=== PATIENT | male | born 1995 | race Caucasian/White ===

== ENCOUNTER 2016-11-19 22:47 | Emergency (ER) | payer BC ==
[2016-11-19 22:55] VITALS: TEMP 98.1
[2016-11-19] MEDS ORDERED: IBUPROFEN 200 MG TAB PO ONE (22:56)
--- NOTE | 2016-11-19 23:54 | EDPHY ---
H & P Stated Complaint: cold sx x 1 week low back pain today Time Seen by Provider: 11/19/16 23:42 HPI/ROS: CHIEF COMPLAINT: Low back pain HISTORY OF PRESENT ILLNESS: 21-year-old immunocompetent male complaining of URI symptoms for the past 1 week including sore throat, rhinorrhea, cough. In the past few days he has noticed bilateral paraspinous lumbar pain with intermittent radicular symptoms/pain in his left lower extremity. No incontinence or retention. No fever or chills. No saddle anesthesia. No foot drop. No lower extremity weakness. No nuchal rigidity. No chest pain. No abdominal pain. No urinary complaints. No flank pain. He took a single Motrin 200 mg this morning with no change in symptoms. PRIMARY CARE PROVIDER: [facility] REVIEW OF SYSTEMS: A ten point review of systems was performed and is negative with the exception of the items mentioned in the HPI PAST MEDICAL & SURGICAL HISTORY: No pertinent medical or surgical history SOCIAL HISTORY: no IV drug use history PHYSICAL EXAM (Prior to examination, patient consented to physical exam, hands were washed and my usual and customary physical exam procedures followed) 1) GENERAL: Well-developed, well-nourished, alert and oriented. Appears to be in no acute distress. 2) HEAD: Normocephalic, atraumatic 3) HEENT: Pupils equal, round, reactive to light bilaterally. Sclera anicteric. Nasopharynx, oropharynx, clear, no lesions.No tonsillar enlargement or tonsillar exudate 4) NECK: Full range of motion, no meningeal signs. Positive bilateral submandibular adenopathy nontender. 5) LUNGS: Clear auscultation bilaterally, no wheezes, no rhonchi, no retractions. 6) HEART: Regular rate and rhythm, no murmur, no heave, no gallop. 7) ABDOMEN: No guarding, no rebound, no focal tenderness, negative McBurney's, negative Dumont's, negative Rovsing's, negative peritoneal sign, 8) MUSCULOSKELETAL: Moving all extremities, no focal areas of tenderness, no obvious trauma. No peripheral edema or discoloration. 9) BACK: tender to palpation lumbarparaspinous muscle. No CVA tenderness, no midline vertebral tenderness, no fluctuance, no step-off, no obvious trauma, no visual or palpable abnormality. Patella, Achilles reflexes intact to bilateral strength 5/5. No foot drop 10) SKIN: No rash, no petechiae. 11) NEURO: Awake, alert, and oriented to person, place and time. Answers questions appropriately. There were no obvious focal neurologic abnormalities. No cerebellar dysfunction. Normal steady gait. Upper and lower extremities bilaterally with strength 5 / 5, reflexes 2+.. DIFFERENTIAL DIAGNOSIS: In no particular order, including but not limited to, fracture, sprain/strain, cauda equina, spinal infectious etiology. MEDICAL DECISION MAKING This patient appears well overall. Regarding his URI symptoms I could not fully rule out influenza however his symptoms have been occurring for week already and I do not think that there is further utility in testing for influenza as he is outside the window for treatment for influenza.. More than likely secondary to viral etiology. Doubt pneumonia. Doubt bacterial etiology for his URI symptoms. I do not think that chest x-ray or antibiotics currently indicated. Regarding his low back pain, lower index of suspicion for cauda equina, epidural abscess, epidural hematoma, lumbar myositis, diskitis, as the patient is neurologically intact in the lower extremities, has patella and Achilles reflexes intact and equal bilaterally, has no neurologic deficits, no incontinence, no retention, no midline pain, no fluctuance, afebrile, no flulike symptoms. Pain may be secondary to muscular strain, may be secondary to discogenic etiology. At this point I do not identify definitive indication for emergent MRI, however patient may necessitate this on an outpatient basis. Patient given acute back pain precautions. Patient verbalizes understanding of discharge instructions. I believe them be competent decision-makers. All questions and concerns have been addressed by me. Ample opportunity for questions have been provided . The patient understands that this diagnosis is provisional and can never be 100% accurate. Usual and customary warnings were given concerning the clinical impression and all the patient's questions were answered. The patient was instructed to return to the emergency department should her symptoms worsen or return, or develop any new symptoms, otherwise to followup as directed in discharge instructions. - Personal History Current Tetanus/Diphtheria Vaccine: Yes Current Tetanus Diphtheria and Acellular Pertussis (TDAP): Yes - Medical/Surgical History Hx Asthma: No Hx Chronic Respiratory Disease: No Hx Diabetes: No Hx Cardiac Disease: No Hx Renal Disease: No Hx Cirrhosis: No Hx Alcoholism: No Hx HIV/AIDS: No Hx Splenectomy or Spleen Trauma: No Other PMH: r labrum surgery - Social History Smoking Status: Current some day smoker Constitutional: Initial Vital Signs Temperature (C) 36.7 C 11/19/16 22:51 Heart Rate 91 11/19/16 22:51 Respiratory Rate 18 11/19/16 22:51 Blood Pressure 133/86 H 11/19/16 22:51 O2 Sat (%) 97 11/19/16 22:51 O2 Delivery Mode Room Air Allergies/Adverse Reactions: No Known Allergies Allergy (Unverified 11/19/16 22:50) Home Medications: Medication Instructions Recorded Ibuprofen [Motrin (*)] 800 mg PO Q6 #15 tab 11/20/16 Medical Decision Making Procedures: Dip urinalysis negative from the emergency department. - Data Points Medications Given: Discontinued Medications Ibuprofen (Motrin) 800 mg PO EDNOW ONE Stop: 11/19/16 22:57 Last Admin: 11/19/16 22:59 Dose: 800 mg Departure - Departure Disposition: Home, Routine, Self-Care Clinical Impression: Lumbar radiculopathy, acute Condition: Good Instructions: Sciatica (ED), Lumbar Radiculopathy (ED) Additional Instructions: Seek medical attention if you develop new or worsening pain, if you develop bladder or bowel dysfunction, numbness around your perineum, foot drop, or any other symptoms that concern you. Referrals: Quang Aquino MD [Medical Doctor] - 5-7 days, call for appt. Prescriptions: Ibuprofen [Motrin (*)] 800 mg PO Q6 #15 tab
[2016-11-20 00:27] VITALS: BP 128/68; PULSE 76; RESP 16; O2SAT 98
== END 2016-11-20 00:27 | disposition home or self-care (01) ==
DX: M54.16 Radiculopathy, lumbar region (principal); F17.200 Nicotine dependence, unspecified, uncomplicated